=== PATIENT | female | born 1945 | race Caucasian/White ===

== ENCOUNTER 2021-08-04 10:15 | Outpatient (CLI) | payer MEDICARE, OTHER | END 2021-08-04 10:16 | disposition home or self-care (01) | LOC: PET 10:15 | PROVIDERS: ATTEND Internal Medicine Hematology & Oncology | DX: C78.7 Secondary malignant neoplasm of liver and intrahepatic bile duct (principal); C50.811 Malignant neoplasm of overlapping sites of right female breast | CPT/HCPCS: 78815; A9552 ==

== ENCOUNTER 2021-12-17 11:00 | Outpatient (CLI) | payer MEDICARE, OTHER | END 2021-12-17 11:01 | LOC: PET 11:00 | PROVIDERS: ATTEND Internal Medicine Hematology & Oncology | DX: C50.811 Malignant neoplasm of overlapping sites of right female breast (principal); C78.7 Secondary malignant neoplasm of liver and intrahepatic bile duct | CPT/HCPCS: 78815; A9552 ==

== ENCOUNTER 2022-04-07 14:02 | Inpatient (IN) | payer OTHER, MEDICARE ==
[~2022-04-07 14:02] MED LIST: Iopamidol-370 76% 500 ML 1 ML ONE
[2022-04-07 14:43] LABS: #Eosinphils 0.1 thou/uL (0.0-0.7); #Lymphocytes 1.8 thou/uL (1.20-3.40); #Monocytes 0.8 thou/uL (0.11-0.59); #Neutrophils 9.1 thou/uL (1.40-6.50); %Basophils 0.2 % (0.0-1.0); %Eosinophils 0.5 % (0.0-10.0); %Lymphocytes 15.4 % (21.0-51.0); %Monocytes 6.5 % (0.0-10.0); %Neutrophils 77.3 % (42.0-75.0); Hemoglobin 10.9 g/dL (12.0-16.0); Mean Corpuscular HGB CONC 33.3 g/dL (32.0-36.0); Mean Corpuscular Hemoglobin 30.6 pg (27.0-31.0); Mean Corpuscular Volume 91.9 fl (78.0-98.0); Mean Platelet Volume 7.3 fL (7.4-10.4); Platelet Count 217 10x3/uL (130-400); RBC Distribution Width 12.3 % (11.5-14.5); Red Blood Cell (RBC) Count 3.56 mill/uL (4.20-5.40); White Blood Cell (WBC) Count 11.7 10x3/uL (4.8-10.8)
[2022-04-07] MEDS ORDERED: Ipratropium/Albuterol 3 ML NEB NEB PRN (14:44)
[2022-04-07] MEDS ORDERED: TETANUS, DIPHTHERIA TOX,ADULT (TDVAX) 0.5 ML VIAL IM ONE (14:44)
[2022-04-07] MEDS ORDERED: Sodium Chloride 0.9% 1,000 ML IV SCH (14:45)
[2022-04-07] MEDS ORDERED: Cyclobenzaprine 10 MG TAB PO PRN (14:48)
[2022-04-07] MEDS ORDERED: Fentanyl 100 MCG/2 ML VIAL ONE ×2 (14:56→15:24)
[2022-04-07 14:58] LABS: ALT (SGPT) 90 U/L (8-55); AST (SGOT) 114 U/L (5-34); Albumin 4.1 g/dL (3.4-4.8); Alkaline Phosphatase 100 U/L (40-110); Anion Gap 13 mmol/L (10-20); BUN (Urea Nitrogen) 28 mg/dL (9.8-20.1); Bilirubin, Total 0.3 mg/dL (0.2-1.2); CK (CPK) 132 U/L (29-168); Calc. Creatinine Clearance 0 mL/min (70-130); Calcium 9.3 mg/dL (7.8-10.44); Carbon Dioxide 24 mmol/L (23-31); Chloride 105 mmol/L (98-107); Estimated GFR 52; Glucose 146 mg/dL (83-110); Lipase 89 U/L (8-78); PTT 23.5 sec (22.9-36.1); Potassium 3.8 mmol/L (3.5-5.1); Protein, Total 7.1 g/dL (5.8-8.1); Prothrombin Time 13.8 sec (12.0-14.7); Sodium 138 mmol/L (136-145)
[2022-04-07] MEDS ORDERED: Boostrix 0.5 ML (Tdap) VIAL (>/=7 yrs of age) ONE (14:58)
[2022-04-07] MEDS ORDERED: CEFAZOLIN 2 GM VIAL ONE (14:58)
[2022-04-07] MEDS ORDERED: Gabapentin 300 MG CAP PO SCH (15:00)
[2022-04-07] MEDS ORDERED: Ketorolac Tromethamine 30 MG/ML VIAL IVP SCH ×2 (15:00→23:59)
[2022-04-07] MEDS ORDERED: Lidocaine 1% w/Epinephrine 1:100K 20 ML VIAL ONE (15:04)
[2022-04-07] MEDS ORDERED: CEFAZOLIN 2 GM in Sodium Chloride 0.9% 100 ML IVPB SCH (15:45)
[2022-04-07 17:26] VITALS: BMI 20.2
[2022-04-07 17:30] LABS: SARS-CoV-2 NAA Rapid Test Not Detected (NotDetected)
[2022-04-07] MEDS: Acetaminophen/Codeine 30-300mg Tablet PO SCH (17:54)
[2022-04-07] MEDS: Morphine 2 MG/ML VIAL SLOW IVP PRN ×2 (20:12→22:31)
[2022-04-07] MEDS: Ondansetron PF 4 MG/2 ML Vial IVP PRN (20:12)
[2022-04-07] MEDS: Famotidine 20 MG TAB PO SCH (20:14)
[2022-04-07] MEDS: Senokot S 8.6-50 MG TAB PO SCH (22:20)
[2022-04-07] MEDS: Gabapentin 100 MG CAP PO SCH (22:32)
[2022-04-07] MEDS: CEFAZOLIN 2 GM in Sodium Chloride 0.9% 100 ML IVPB SCH (22:32)
[2022-04-08] MEDS: Acetaminophen/Codeine 30-300mg Tablet PO SCH ×3 (00:53→10:16)
[2022-04-08 06:02] LABS: #Lymphocytes 2.9 thou/uL (1.20-3.40); #Monocytes 0.9 thou/uL (0.11-0.59); %Eosinophils 0.3 % (0.0-10.0); %Lymphocytes 26.3 % (21.0-51.0); %Monocytes 8.6 % (0.0-10.0); %Neutrophils 64.8 % (42.0-75.0); Mean Corpuscular HGB CONC 33.5 g/dL (32.0-36.0); Mean Corpuscular Hemoglobin 30.9 pg (27.0-31.0); Mean Corpuscular Volume 92.1 fl (78.0-98.0); Mean Platelet Volume 7.2 fL (7.4-10.4); Platelet Count 188 10x3/uL (130-400); RBC Distribution Width 12.2 % (11.5-14.5); Red Blood Cell (RBC) Count 3.23 mill/uL (4.20-5.40); White Blood Cell (WBC) Count 10.8 10x3/uL (4.8-10.8)
[2022-04-08 06:19] LABS: Anion Gap 11 mmol/L (10-20); BUN (Urea Nitrogen) 15 mg/dL (9.8-20.1); Calc. Creatinine Clearance 51 mL/min (70-130); Calcium 8.9 mg/dL (7.8-10.44); Carbon Dioxide 22 mmol/L (23-31); Chloride 105 mmol/L (98-107); Estimated GFR 69; Glucose 110 mg/dL (83-110); Potassium 3.7 mmol/L (3.5-5.1); Sodium 134 mmol/L (136-145)
[2022-04-08] MEDS: CEFAZOLIN 2 GM in Sodium Chloride 0.9% 100 ML IVPB SCH ×2 (06:29→15:47)
[2022-04-08] MEDS ORDERED: Polyethylene Glycol 3350 17 GM Packet PO SCH (09:00)
[2022-04-08] MEDS ORDERED: Multivitamin W/ Minerals 1 TAB PO SCH (09:00)
[2022-04-08] MEDS: Senokot S 8.6-50 MG TAB PO SCH (10:15)
[2022-04-08] MEDS: Famotidine 20 MG TAB PO SCH (10:15)
[2022-04-08] MEDS: Gabapentin 100 MG CAP PO SCH (10:15)
[2022-04-08] MEDS: Ondansetron PF 4 MG/2 ML Vial IVP PRN (10:45)
[2022-04-08] MEDS ORDERED: fentaNYL PF 100 MCG/2 ML SYRINGE ONE (12:07)
[2022-04-08] MEDS ORDERED: Ondansetron PF 4 MG/2 ML Vial ONE (12:48)
[2022-04-08] MEDS ORDERED: ePHEDrine 50 MG/ML VIAL ONE (12:48)
[2022-04-08] MEDS ORDERED: PROPOFOL 200 MG/20 ML VIAL ONE (12:48)
[2022-04-08] MEDS ORDERED: Lidocaine 1% PF 5 ML VIAL ONE (12:48)
[2022-04-08] MEDS ORDERED: Dexamethasone 20 MG/5 ML VIAL ONE (12:48)
[2022-04-08] MEDS ORDERED: Bupivacaine HCl 0.5%/Epinephrine 1:200,000/PF 30 ml Vial ONE (13:06)
[2022-04-08] MEDS ORDERED: Neomycin-Polymyxin 1 ML AMP ONE (13:06)
[2022-04-08] MEDS ORDERED: CEFAZOLIN 2 GM in Sodium Chloride 0.9% 100 ML IVPB SCH ×2 (14:00→21:00)
[2022-04-08] MEDS ORDERED: Promethazine HCl 25 MG/ML VIAL IM PRN (14:02)
[2022-04-08] MEDS ORDERED: Ondansetron HCl/PF 4 MG/2 ML Vial IVP PRN (14:02)
[2022-04-08] MEDS ORDERED: HYDROmorphone 2 MG/ML VIAL SLOW IVP PRN (14:02)
[2022-04-08] MEDS ORDERED: Fentanyl 100 MCG/2 ML VIAL ONE (14:16)
[2022-04-08 16:58] VITALS: BP 157/74; TEMP 98.7
== END 2022-04-08 18:15 | disposition home or self-care (01) | DRG 511 ==
LOC: ERS 14:02 → SURG A 17:03
PROVIDERS: ADMIT Orthopaedic Surgery; ATTEND Surgery
PROC: 0PSH04Z Reposition Right Radius with Internal Fixation Device, Open Approach (ICD-10-PCS; principal; 2022-04-08)
PROC: 0PSK04Z Reposition Right Ulna with Internal Fixation Device, Open Approach (ICD-10-PCS; 2022-04-08)
DX: S59.201A Unspecified physeal fracture of lower end of radius, right arm, initial encounter for closed fracture (principal); S22.43XA Multiple fractures of ribs, bilateral, initial encounter for closed fracture; S36.039A Unspecified laceration of spleen, initial encounter; S59.001A Unspecified physeal fracture of lower end of ulna, right arm, initial encounter for closed fracture; R74.01 Elevation of levels of liver transaminase levels; Z85.3 Personal history of malignant neoplasm of breast; V43.02XA Car driver injured in collision with other type car in nontraffic accident, initial encounter; Z92.21 Personal history of antineoplastic chemotherapy; Z20.822 Contact with and (suspected) exposure to COVID-19
CPT/HCPCS: 36415; 70450; 71045; 71260; 72125; 72170; 74177; 80048; 80053; 82550; 83690; 85025; 85610; 85730; 86850; 86900; 86901; 90715; C1713; G0390; J1100; J2272; J2405; J2704; J3010; J3490; J7050; Q9967; U0002